=== PATIENT | female | born 1945 | race Caucasian/White ===

== ENCOUNTER 2018-12-14 21:35 | Outpatient (CLI) | payer SELFPAY | END 2018-12-14 21:36 | disposition home or self-care (01) | LOC: EMS 21:35 | PROVIDERS: ATTEND Surgery | DX: J34.89 Other specified disorders of nose and nasal sinuses (principal); F03.90 Unspecified dementia, unspecified severity, without behavioral disturbance, psychotic disturbance, mood disturbance, and anxiety ==

== ENCOUNTER 2018-12-15 08:39 | Outpatient (CLI) | payer MEDICARE | END 2018-12-15 08:40 | disposition critical access hospital (66) | LOC: EMS 08:39 | PROVIDERS: ATTEND Surgery | DX: F03.90 Unspecified dementia, unspecified severity, without behavioral disturbance, psychotic disturbance, mood disturbance, and anxiety (principal); R09.81 Nasal congestion | CPT/HCPCS: A0425; A0429 ==

== ENCOUNTER 2018-12-15 08:50 | Emergency (ER) | payer MEDICARE ==
--- NOTE | 2018-12-15 09:24 | ED Physician Documentation ---
History of Present Illness - Stated complaint Stated Complaint: STUFFY NOSE - Chief complaint Chief Complaint: General - History obtained from History obtained from: Patient, EMS - History of Present Illness Timing: Today - Additonal information Additional information: 73-year-old female is brought to the hospital by ambulance after a second EMS call for a stuffy nose in 24 hours. She is unable to give adequate history about why she is here or what has happened to her in the past week or month. She does state that she had a fall outside of the court house does not remember exactly why she was at the court house or what the timeframe was. She thinks he might of had another fall she does not have any pain anywhere and denies any specific symptoms. When specifically asked about her stuffy nose she states that she does have a stuffy nose once in a while and does not feel that she has that now. The patient has apparently recently been seen at [facility] and an APS call has been made. This occurred when the patient took her car after to go [employer] and got lost after passing through [place] and getting to [place] she turned around to come back and somehow she ended up wandering around in [place] and eventually was picked up by police and brought to the hospital. She does have a friend who came to retrieve her. Review of Systems Unable to obtain: Dementia Constitutional: denies: Fever, Chills, Myalgias Eyes: denies: Decreased vision Ears: denies: Ear pain Nose: denies: Rhinorrhea / runny nose, Congestion Throat: denies: Sore throat Cardiac: denies: Chest pain / pressure, Palpitations Respiratory: denies: Dyspnea, Cough GI: denies: Abdominal Pain, Nausea, Vomiting : denies: Dysuria, Frequency Skin: denies: Rash Musculoskeletal: denies: Neck pain, Back pain, Extremity pain Neurologic: denies: Generalized weakness, Focal weakness, Numbness, Difficulty speaking, Near syncope, Headache, Head injury, LOC PD PAST MEDICAL HISTORY - Present Medications Home Medications: Ambulatory Orders Medication Instructions Recorded Confirmed No Known Home Medications 12/15/18 12/15/18 - Allergies Allergies/Adverse Reactions: Allergies Allergy/AdvReac Type Severity Reaction Status Date / Time No Known Drug Allergies Allergy Verified 12/15/18 09:11 PD ED PE NORMAL - Vitals Vital signs reviewed: Yes (hypertensive) - General General: No acute distress, Well developed/nourished, Other (The patient is not oriented. After some trying she is able to get the date as 2018 and Avril as president. She knows she is in a hospital but not why she is here. ) - HEENT HEENT: Atraumatic, PERRL, EOMI, Ears normal, Moist mucous membranes, Pharynx benign - Neck Neck: Supple, no meningeal sign, No bony TTP - Cardiac Cardiac: RRR, No murmur - Respiratory Respiratory: No respiratory distress, Clear bilaterally - Abdomen Abdomen: Soft, Non tender - Back Back: No CVA TTP, No spinal TTP - Derm Derm: Normal color, Warm and dry, No rash - Extremities Extremities: No deformity, No edema - Neuro Neuro: machine adjuster 2-12 intact, No motor deficit, No sensory deficit, Normal speech Eye Opening: Spontaneous Motor: Obeys Commands Verbal: Confused GCS Score: 14 - Psych Psych: Normal mood, Normal affect Results - Vitals Vitals: Vital Signs - 24 hr 12/15/18 12/15/18 12/15/18 08:58 11:17 12:00 Temperature 36.6 C 36.9 C Heart Rate 64 61 66 Respiratory 16 18 16 Rate Blood Pressure 133/66 H 124/63 144/66 H O2 Saturation 100 100 97 Oxygen O2 Source Room air - Labs Labs: Laboratory Tests 12/15/18 12/15/18 09:35 09:35 WBC 4.3 L RBC 3.60 L Hgb 11.5 L Hct 33.1 L MCV 91.8 MCH 31.8 H MCHC 34.7 RDW 15.8 H Plt Count 331 MPV 6.7 L Neut # (Auto) 2.8 Lymph # (Auto) 0.8 L [place] # (Auto) 0.5 Eos # (Auto) 0.1 Baso # (Auto) 0.0 Absolute Nucleated RBC 0.00 Nucleated RBC % 0.0 Sodium 140 Potassium 3.7 Chloride 106 Carbon Dioxide 24 Anion Gap 10.0 BUN 19 Creatinine 0.6 Estimated GFR (MDRD) 97 Glucose 113 H Calcium 9.1 Total Bilirubin 0.6 AST 17 ALT 12 Alkaline Phosphatase 64 Total Protein 6.3 L Albumin 3.1 L Globulin 3.2 Albumin/Globulin Ratio 1.0 Lipase 23 PD MEDICAL DECISION MAKING - ED course Complexity details: reviewed results, re-evaluated patient, considered differential, d/w patient ED course: 73-year-old female with advancing dementia has had a recent hospitalization in [place] when she showed up there after getting lost and an APS referral has been made. Here in the emerge department our neonatal social worker evaluates the patient and recommends returning patient to her home with follow-up with adult protective services. There is no current medical issue. Departure - Departure Disposition: Home, Self Care Clinical Impression: Dementia Condition: Stable Instructions: ED Confusion Follow-Up: EBEN RICHARDSON [Primary Care Provider] - Discharge Date/Time: 12/15/18 12:05
[2018-12-15 09:43] LABS: BASOPHILS % (AUTO) 1.1 %; EOSINOPHILS # (AUTO) 0.1 10^3/uL (0.0-0.7); EOSINOPHILS % (AUTO) 2.8 %; HGB - HEMOGLOBIN 11.5 g/dL (12.0-16.0); LYMPHOCYTES # (AUTO) 0.8 10^3/uL (1.5-3.5); LYMPHOCYTES % (AUTO) 18.7 %; MEAN CORPUSCULAR HEMOGLOBIN 31.8 pg (27.0-31.0); MEAN CORPUSCULAR HGB CONC 34.7 g/dL (32.0-36.0); MEAN CORPUSCULAR VOLUME 91.8 fL (81.0-99.0); MEAN PLATELET VOLUME 6.7 fL (7.9-10.8); MONOCYTES # (AUTO) 0.5 10^3/uL (0.0-1.0); MONOCYTES % (AUTO) 12.6 %; NEUTROPHILS # (AUTO) 2.8 10^3/uL (1.5-6.6); NEUTROPHILS % (AUTO) 64.8 %; PLT - PLATELET COUNT 331 10^3/uL (130-450); RED CELL DISTRIBUTION WIDTH 15.8 % (12.0-15.0); WHITE BLOOD COUNT 4.3 x10^3/uL (4.8-10.8)
[2018-12-15 09:54] LABS: ALBUMIN 3.1 g/dL (3.2-5.5); BILIRUBIN,TOTAL 0.6 mg/dL (0.2-1.0); CALCIUM 9.1 mg/dL (8.5-10.3); CREATININE 0.6 mg/dL (0.4-1.0); TOTAL PROTEIN 6.3 g/dL (6.7-8.2)
[2018-12-15 12:14] VITALS: BP 144/66
== END 2018-12-15 12:05 | disposition home or self-care (01) ==
LOC: EDUNIT# → ED 08:50
DX: F03.90 Unspecified dementia, unspecified severity, without behavioral disturbance, psychotic disturbance, mood disturbance, and anxiety (principal)
CPT/HCPCS: 36415; 80053; 83690; 85025; 99283

== ENCOUNTER 2019-08-17 19:03 | Outpatient (CLI) | payer MEDICARE | END 2019-08-17 19:04 | disposition critical access hospital (66) | LOC: EMS 19:03 | PROVIDERS: ATTEND Surgery | DX: Z03.89 Encounter for observation for other suspected diseases and conditions ruled out (principal) | CPT/HCPCS: A0425; A0429 ==

== ENCOUNTER 2019-08-17 19:20 | Emergency (ER) | payer MEDICARE ==
--- NOTE | 2019-08-17 20:16 | ED Physician Documentation ---
History of Present Illness - Stated complaint Stated Complaint: MSE - Chief complaint Chief Complaint: General - History obtained from History obtained from: Patient, EMS, Caregiver (GAL) - History of Present Illness Timing: Chronic Pain level max: 0 Pain level now: 0 Improved by: nothing Worsened by: nothing - Additonal information Additional information: 73-year-old female presents to the emergency department with her pupil personnel services director. Is brought in by EMS. He states that she is not eating and drinking at home. He states she has no electricity. He is concerned about her safety at home. She states that she has electricity and she is eating and drinking. She states that she ate breakfast this morning. She has no complaints at this time and states that she does not want to be in the emergency department and does not know why she is here. The pupil personnel services director states that the police were out last night and were also concerned about her, but not concerned enough to write an affidavit or statement. Review of Systems Ten Systems: 10 systems reviewed and negative Constitutional: denies: Fever, Chills Nose: denies: Rhinorrhea / runny nose, Congestion Throat: denies: Sore throat Cardiac: denies: Chest pain / pressure, Palpitations Respiratory: denies: Dyspnea, Cough GI: denies: Abdominal Pain, Nausea, Vomiting, Diarrhea Skin: denies: Rash Musculoskeletal: denies: Neck pain, Back pain Neurologic: reports: Confused (baseline, no change per GAL). denies: Generalized weakness, Focal weakness, Numbness, Headache, Head injury, LOC PD PAST MEDICAL HISTORY - Past Medical History Past Medical History: No - Past Surgical History Past Surgical History: No - Present Medications Home Medications: Ambulatory Orders Medication Instructions Recorded Confirmed No Known Home Medications 12/15/18 12/15/18 - Allergies Allergies/Adverse Reactions: Allergies Allergy/AdvReac Type Severity Reaction Status Date / Time No Known Drug Allergies Allergy Verified 12/15/18 09:11 - Living Situation Living Arrangement: reports: At home - Social History Does the pt smoke?: No Smoking Status: Never smoker Does the pt drink ETOH?: No Does the pt have substance abuse?: No - Family History Family history: reports: Non contributory PD ED PE NORMAL - Vitals Vital signs reviewed: Yes - General General: Other (Alert, oriented to person and place. Thin female. Well-kept. Not disheveled) - HEENT HEENT: PERRL, Moist mucous membranes, Pharynx benign - Neck Neck: Supple, no meningeal sign - Cardiac Cardiac: RRR, Strong equal pulses - Respiratory Respiratory: No respiratory distress, Clear bilaterally - Abdomen Abdomen: Soft, Non tender, Non distended - Derm Derm: Warm and dry, No rash - Extremities Extremities: No edema - Neuro Neuro: Other (Alert, oriented to person and place.) - Psych Psych: Normal mood, Normal affect Results - Vitals Vitals: Vital Signs - 24 hr 08/17/19 08/17/19 08/17/19 19:23 20:13 20:39 Temperature 36 C L Heart Rate 80 72 Respiratory 18 17 Rate Blood Pressure 219/110 H 200/114 H 188/87 H O2 Saturation 98 99 Oxygen O2 Source Room air - EKG (time done) 2002 Rate: Rate (enter#) (83) Rhythm: NSR [place]: Normal Intervals: Normal MN QRS: LVH Ischemia: Normal ST segments - Labs Labs: Laboratory Tests 08/17/19 08/17/19 08/17/19 20:15 20:15 20:15 WBC 6.8 RBC 4.40 Hgb 13.9 Hct 41.1 MCV 93.4 MCH 31.6 H MCHC 33.8 RDW 15.1 H Plt Count 343 MPV 8.8 Neut # (Auto) 5.4 Lymph # (Auto) 0.8 L [place] # (Auto) 0.5 Eos # (Auto) 0.0 Baso # (Auto) 0.0 Absolute Nucleated RBC 0.00 Nucleated RBC % 0.0 Sodium 140 Potassium 3.8 Chloride 104 Carbon Dioxide 17 L Anion Gap 19.0 H BUN 24 H Creatinine 0.9 Estimated GFR (MDRD) 61 L Glucose 117 H Calcium 10.4 H Total Bilirubin 1.4 H AST 22 ALT 11 Alkaline Phosphatase 54 Total Protein 8.4 H Albumin 4.6 Globulin 3.8 Albumin/Globulin Ratio 1.2 Lipase 30 TSH 1.84 Free T4 0.96 Urine Color Urine Clarity Urine pH Ur Specific [place] Urine Protein Urine Glucose (UA) Urine Ketones Urine Occult Blood Urine Nitrite Urine Bilirubin Urine Urobilinogen Ur Leukocyte Esterase Urine RBC Urine WBC Ur Squamous Epith Cells Urine Bacteria Urine Casts Ur Microscopic Review Urine Culture Comments 08/17/19 20:20 WBC RBC Hgb Hct MCV MCH MCHC RDW Plt Count MPV Neut # (Auto) Lymph # (Auto) [place] # (Auto) Eos # (Auto) Baso # (Auto) Absolute Nucleated RBC Nucleated RBC % Sodium Potassium Chloride Carbon Dioxide Anion Gap BUN Creatinine Estimated GFR (MDRD) Glucose Calcium Total Bilirubin AST ALT Alkaline Phosphatase Total Protein Albumin Globulin Albumin/Globulin Ratio Lipase TSH Free T4 Urine Color YELLOW Urine Clarity HAZY Urine pH 6.0 Ur Specific [place] >=1.030 H Urine Protein 30 H Urine Glucose (UA) NEGATIVE Urine Ketones >=80 H Urine Occult Blood TRACE-INTA Urine Nitrite NEGATIVE Urine Bilirubin NEGATIVE Urine Urobilinogen 0.2 (NORMAL) Ur Leukocyte Esterase NEGATIVE Urine RBC 0-5 Urine WBC 11-25 H Ur Squamous Epith Cells MOD Squamous H Urine Bacteria Few Urine Casts 0-2 Course Granular Ur Microscopic Review INDICATED Urine Culture Comments NOT INDICATED PD MEDICAL DECISION MAKING - ED course Complexity details: reviewed results, re-evaluated patient, considered differential, d/w patient ED course: 73-year-old female brought in by her temporary pupil personnel services director. EMS states that there was electricity on at the house. Lights were on inside the residence. They state the residence was well kept. She appears clean and well- kept here. Eating and drinking without difficulty. No significant laboratory abnormalities other than mild dehydration. No indication for hospitalization at this time. Recommend that she follow-up with her doctor for further care. She does have a primary care provider that she has seen. Does have long-standing hypertension. Her hypertension here is not significantly different than her prior visits. Patient counseled regarding signs and symptoms for which I believe and urgent re-evaluation would be necessary. Patient with good understanding of and agreement to plan and is comfortable going home at this time This document was made in part using voice recognition software. While efforts are made to proofread this document, sound alike and grammatical errors may occur. Departure - Departure Disposition: 01 Home, Self Care Clinical Impression: Dehydration Hypertension Qualifiers: Hypertension type: unspecified Qualified Code(s): I10 - Essential (primary) hypertension Condition: Good Instructions: ED Dehydration Follow-Up: EBEN ARCEO [Physician No Access] - Within 3 Days Comments: You have mild dehydration on your laboratory testing today. Your blood pressure was high but is coming down on its own. You should follow-up with your doctor for further care. You see Dr. Arceo in [place]. Discharge Date/Time: 08/17/19 21:26
[2019-08-17 20:21] LABS: BASOPHILS % (AUTO) 0.6 %; EOSINOPHILS % (AUTO) 0.4 %; HGB - HEMOGLOBIN 13.9 g/dL (12.0-16.0); LYMPHOCYTES # (AUTO) 0.8 10^3/uL (1.5-3.5); LYMPHOCYTES % (AUTO) 12.3 %; MEAN CORPUSCULAR HEMOGLOBIN 31.6 pg (27.0-31.0); MEAN CORPUSCULAR HGB CONC 33.8 g/dL (32.0-36.0); MEAN CORPUSCULAR VOLUME 93.4 fL (81.0-99.0); MEAN PLATELET VOLUME 8.8 fL (7.9-10.8); MONOCYTES # (AUTO) 0.5 10^3/uL (0.0-1.0); MONOCYTES % (AUTO) 7.8 %; NEUTROPHILS # (AUTO) 5.4 10^3/uL (1.5-6.6); NEUTROPHILS % (AUTO) 78.5 %; PLT - PLATELET COUNT 343 10^3/uL (130-450); RED CELL DISTRIBUTION WIDTH 15.1 % (12.0-15.0); WHITE BLOOD COUNT 6.8 x10^3/uL (4.8-10.8)
[2019-08-17 20:28] LABS: GLUCOSE, URINE (UA) NEGATIVE (NEGATIVE); KETONES,URINE (UA) >=80 mg/dL (NEGATIVE); LEUKOCYTE ESTERASE, URINE NEGATIVE (NEGATIVE); NITRITE,URINE NEGATIVE (NEGATIVE); OCCULT BLOOD,URINE TRACE-INTA (NEGATIVE); PROTEIN,URINE 30 mg/dL (NEGATIVE); UROBILINOGEN,URINE 0.2 (NORMAL) E.U./dL (NORMAL)
[2019-08-17 20:30] LABS: BILIRUBIN,URINE NEGATIVE (NEGATIVE); ICTOTEST,URINE NEGATIVE
[2019-08-17 20:31] LABS: CLARITY,URINE HAZY (CLEAR)
[2019-08-17 20:35] LABS: ALBUMIN 4.6 g/dL (3.2-5.5); ALBUMIN/GLOBULIN RATIO 1.2 (1.0-2.2); BILIRUBIN,TOTAL 1.4 mg/dL (0.2-1.0); CALCIUM 10.4 mg/dL (8.5-10.3); CREATININE 0.9 mg/dL (0.4-1.0); TOTAL PROTEIN 8.4 g/dL (6.7-8.2)
[2019-08-17 20:40] VITALS: BP 188/87
[2019-08-17 20:41] LABS: BACTERIA,URINE Few /HPF (None Seen); RBC,URINE 0-5 /HPF (0-5); SQUAMOUS EPITHELIAL CELL,UR MOD Squamous (<= Few)
[2019-08-17 20:53] LABS: THYROID STIMULATING HORMONE 1.84 uIU/mL (0.34-5.60)
[2019-08-17 20:55] LABS: FREE T4 (FREE THYROXINE) 0.96 ng/dL (0.58-1.64)
== END 2019-08-17 21:26 | disposition home or self-care (01) ==
LOC: EDUNIT# → ED 19:20
DX: E86.0 Dehydration (principal); I10 Essential (primary) hypertension
CPT/HCPCS: 36415; 80053; 81001; 81003; 83690; 84439; 84443; 85025; 87086; 93005; 99282; 99283

== ENCOUNTER 2019-11-16 16:26 | Outpatient (CLI) | payer MEDICARE, MEDICAID | END 2019-11-16 16:27 | disposition critical access hospital (66) | LOC: EMS 16:26 | PROVIDERS: ATTEND Surgery | DX: M25.551 Pain in right hip (principal); R11.10 Vomiting, unspecified | CPT/HCPCS: A0425; A0427 ==

== ENCOUNTER 2019-11-16 16:42 | Inpatient (IN) | payer MEDICARE, MEDICAID ==
--- NOTE | 2019-11-16 16:55 | ED Physician Documentation ---
PD HPI Fall - Stated complaint Stated Complaint: FALL/HIP PAIN - History obtained from History obtained from: EMS - History of Present Illness Where injury occurred: Home Timing - onset: Unknown Injury(ies) location: Right Lower Extremity Worsens with: Palpation Recently seen: Not recently seen - Additional information Additional information: This is a 74-year-old woman with a history of dementia who was found on her floor in her home by a neighbor. There was no heat on in the home and the patient lives alone. The last time this particular neighbor saw the patient was a week ago and she is not sure if anyone has checked in on her otherwise because of the holidays. When the neighbor entered the house she heard yelling and found the patient laying on the floor in the hallway. Seem like she was in pain in her right hip and she indicated as much. When the neighbor sat her up she started vomiting everywhere. The neighbor knows that there was a court hearing and she was assigned this to be evaluated by Senior services but really is not clear on whose coming in to check on the patient and what is happening in the realm of her living situation. The neighbor indicated that the house was very cold without any heat on and that there was cat feces littered around the home. Patient herself is unable to provide me any history. Is unclear if she is unwilling or unable to. She did receive 100 mcg of fentanyl and Zofran 4 mg in route by EMS services for her right hip pain. When asked where she was she recited an address she stated was in [place] but did not recognize that she was at the hospital. She was noted by EMS to have very cold extremities and was found with a shortened externally rotated right lower extremity. Review of Systems Unable to obtain: Dementia PD PAST MEDICAL HISTORY - Past Surgical History Past Surgical History: No - Present Medications Home Medications: Ambulatory Orders Medication Instructions Recorded Confirmed No Known Home Medications 12/15/18 12/15/18 - Allergies Allergies/Adverse Reactions: Allergies Allergy/AdvReac Type Severity Reaction Status Date / Time No Known Drug Allergies Allergy Verified 12/15/18 09:11 - Social History Does the pt smoke?: No Smoking Status: Never smoker Does the pt drink ETOH?: No Does the pt have substance abuse?: No PD ED PE NORMAL - Vitals Vital signs reviewed: Yes - General General: No acute distress, Other (Patient was covered with emesis and would respond to light tactile stimulation just to open her eyes and look at me.) - HEENT HEENT: PERRL - Neck Neck: Other (Patient was in a cervical collar which remained in place until imaging could be cleared) - Cardiac Cardiac: RRR, No murmur - Respiratory Respiratory: No respiratory distress - Abdomen Abdomen: Normal bowel sounds, Soft, Other (She is very thin) - Extremities Extremities: No edema, Other (The right lower extremity is shortened and externally rotated but movement of the leg does not appear to elicit any pain. Palpation over the right hip however does elicit discomfort. Her feet are very cold to the touch. The left leg does not appear to have any pain with movement or palpation. Both upper extremities are moved through range of motion in the shoulder elbow and wrist without any obvious discomfort.) - Neuro Neuro: Other (The patient is not cooperative to follow commands.) Results - Vitals Vitals: Vital Signs - 24 hr 11/16/19 11/16/19 16:54 16:59 Temperature 35.8 C L Heart Rate 75 75 Respiratory 15 15 Rate Blood Pressure 189/86 H 189/86 H O2 Saturation 92 92 Oxygen O2 Source Room air - EKG (time done) 1710 Rate: Rate (enter#) (86) Rhythm: NSR Ischemia: Q waves (II, III, aVF and V5-V6), Non specific changes Other comments: Other comments (Narrow QRS with probable LVH and some nonspecific ST-T wave changes as well as T wave inversion through the inferior and lateral leads.) Compare to prior EKG: Old EKG unavailable - Labs Labs: Laboratory Tests 11/16/19 11/16/19 11/16/19 17:15 17:15 17:15 WBC 12.1 H RBC 4.83 Hgb 14.8 Hct 42.5 MCV 88.0 MCH 30.6 MCHC 34.8 RDW 13.4 Plt Count 341 MPV 9.1 Neut # (Auto) 10.3 H Lymph # (Auto) 0.9 L [place] # (Auto) 0.7 Eos # (Auto) 0.0 Baso # (Auto) 0.1 Absolute Nucleated RBC 0.00 Nucleated RBC % 0.0 PT 14.0 H INR 1.2 Sodium 137 Potassium 2.8 L Chloride 96 L Carbon Dioxide 18 L Anion Gap 23.0 H BUN 35 H Creatinine 1.1 H Estimated GFR (MDRD) 48 L Glucose 225 H Lactic Acid Calcium 9.8 Phosphorus 3.3 Magnesium 2.1 Total Bilirubin 1.7 H AST 21 ALT 19 Alkaline Phosphatase 51 Total Creatine Kinase 25 Total Protein 7.2 Albumin 3.9 Globulin 3.3 Albumin/Globulin Ratio 1.2 Lipase 43 11/16/19 17:15 WBC RBC Hgb Hct MCV MCH MCHC RDW Plt Count MPV Neut # (Auto) Lymph # (Auto) [place] # (Auto) Eos # (Auto) Baso # (Auto) Absolute Nucleated RBC Nucleated RBC % PT INR Sodium Potassium Chloride Carbon Dioxide Anion Gap BUN Creatinine Estimated GFR (MDRD) Glucose Lactic Acid 3.8 H* Calcium Phosphorus Magnesium Total Bilirubin AST ALT Alkaline Phosphatase Total Creatine Kinase Total Protein Albumin Globulin Albumin/Globulin Ratio Lipase - Rads (name of study) r hip Radiology: EMP read contemporaneously cxr Radiology: EMP read contemporaneously, See rad report (neg) ct head Radiology: See rad report (neg acute) PD MEDICAL DECISION MAKING - ED course Complexity details: reviewed old records, reviewed results, d/w data migration consultant ED course: I was able to talk to the neighbor at length over the phone who gave me the information regarding the senior support services and their phone number. I spoke to a Jamia who is the guardian that is on-call this weekend. Unfortunately she does not have immediate access to Ms. Vitale's records and as I was talking with her on the phone was able to view the hip imaging that showed a fracture. Jamia indicated that they would want to proceed with typical care and a course knowing that no surgery would be done tonight anyway. I am also concerned about how long she could have been laying on the floor and still have imaging pending for CTs of the head and neck as well as some laboratory studies. She is hypokalemic at 2.8 and has been ordered for potassium 20 mEq IV. I discussed with Dr. Burgess who is on-call for orthopedics and he plans to contact the guardian about whether they would want hip replacement surgery given the patient's severe dementia. There was some discussion between Dr. Burgess and the guardian about transferring the patient to another facility however I did call and clarify with the guardian that under the circumstances we have the capacity to deal with the patient's medical problems here at [facility] and it is unlikely that ambulance transfer would be paid for under those conditions. Jamia is good to talk with her supervisor waterworks and have someone call me or the ER provider back. Care will be turned over to Dr. Pitts. The head CT was negative and the chest x-ray is clear. The C-spines imaging is still pending.
[2019-11-16 17:21] LABS: BASOPHILS # (AUTO) 0.1 10^3/uL (0.0-0.1); BASOPHILS % (AUTO) 0.4 %; EOSINOPHILS % (AUTO) 0.1 %; HGB - HEMOGLOBIN 14.8 g/dL (12.0-16.0); LYMPHOCYTES # (AUTO) 0.9 10^3/uL (1.5-3.5); LYMPHOCYTES % (AUTO) 7.7 %; MEAN CORPUSCULAR HEMOGLOBIN 30.6 pg (27.0-31.0); MEAN CORPUSCULAR HGB CONC 34.8 g/dL (32.0-36.0); MEAN PLATELET VOLUME 9.1 fL (7.9-10.8); MONOCYTES # (AUTO) 0.7 10^3/uL (0.0-1.0); MONOCYTES % (AUTO) 5.6 %; NEUTROPHILS # (AUTO) 10.3 10^3/uL (1.5-6.6); NEUTROPHILS % (AUTO) 85.4 %; PLT - PLATELET COUNT 341 10^3/uL (130-450); RED BLOOD COUNT 4.83 10^6/uL (4.20-5.40); RED CELL DISTRIBUTION WIDTH 13.4 % (12.0-15.0); WHITE BLOOD COUNT 12.1 x10^3/uL (4.8-10.8)
[2019-11-16 17:32] LABS: INR 1.2 (0.8-1.2)
[2019-11-16 17:36] LABS: ALBUMIN 3.9 g/dL (3.2-5.5); ALBUMIN/GLOBULIN RATIO 1.2 (1.0-2.2); BILIRUBIN,TOTAL 1.7 mg/dL (0.2-1.0); CALCIUM 9.8 mg/dL (8.5-10.3); CREATININE 1.1 mg/dL (0.4-1.0); MAGNESIUM 2.1 mg/dL (1.7-2.8); PHOSPHORUS 3.3 mg/dL (2.5-4.6); TOTAL PROTEIN 7.2 g/dL (6.7-8.2)
[2019-11-16] MEDS ORDERED: POTASSIUM CHLOR 20 MEQ/100 ML 20 MEQ/100 ML BAG IV ONE (17:45)
--- NOTE | 2019-11-16 18:03 | XRAY Report ---
Reason: r hip pain Procedure Date: 11/16/2019 Accession Number: [id number] / [id number] Procedure: XR - Hip w/Pelvis 2-3V RT CPT Code: Final Report FULL RESULT: EXAM: RIGHT HIP RADIOGRAPHY EXAM DATE: 11/16/2019 05:39 PM. CLINICAL HISTORY: R hip pain. COMPARISON: None. TECHNIQUE: 2 views. FINDINGS: Bones: There is varus angulated fracture through the right femoral neck. Joints: Normal. No dislocation. The hip joint space is preserved. Soft Tissues: There is moderate to large volume stool within colon. IMPRESSION: Varus angulated fracture through the right femoral neck. No evidence of dislocation. RADIA
--- NOTE | 2019-11-16 18:04 | XRAY Report ---
Reason: chest pain Procedure Date: 11/16/2019 Accession Number: [id number] / [id number] Procedure: XR - Chest 1 View X-Ray CPT Code: 30202 Final Report FULL RESULT: EXAM: CHEST RADIOGRAPHY EXAM DATE: 11/16/2019 05:41 PM. CLINICAL HISTORY: Chest pain. COMPARISON: CERVICAL SPINE W/O 11/16/2019 5:25 PM. TECHNIQUE: 1 view. FINDINGS: Lungs/Pleura: No focal opacities evident. No pleural effusion. No pneumothorax. Mediastinum: Within exam limitations, the cardiomediastinal contour is normal. Other: Linear lucency projecting over the left chest is presently extrinsic to the patient. IMPRESSION: No acute intrathoracic plain film abnormality. RADIA
--- NOTE | 2019-11-16 18:06 | CT Report ---
Reason: altered mental status Procedure Date: 11/16/2019 Accession Number: [id number] / [id number] Procedure: CT - HEAD WO CPT Code: Final Report FULL RESULT: EXAM: CT HEAD EXAM DATE: 11/16/2019 05:43 PM. CLINICAL HISTORY: Altered mental status. COMPARISON: None. TECHNIQUE: Multiaxial CT images were obtained from the foramen magnum to the vertex. Reformats: Sagittal and coronal. IV contrast: None. In accordance with CT protocol optimization, one or more of the following dose reduction techniques were utilized for this exam: automated exposure control, adjustment of mA and/or KV based on patient size, or use of iterative reconstructive technique. FINDINGS: Parenchyma: There is mild patchy hypoattenuation in the periventricular and deep white matter. The overall díaz-white matter differentiation is preserved. No intracranial hemorrhage demonstrated. No evidence of mass or mass-effect. Extraaxial Spaces: Within normal limits. No subdural or epidural collections identified. Ventricles: Normal in size and position. Basal cisterns are widely patent. Sinuses and Orbits: Imaged paranasal sinuses, orbits, and mastoids show no significant abnormality. Bones: No evidence of fracture or calvarial defect. Other: None. IMPRESSION: 1. No acute intracranial abnormality. 2. Sequela of mild chronic microvascular disease. RADIA
[2019-11-16] MEDS ORDERED: SODIUM CHLORIDE 0.9% 1,000 ML IV ONE (18:09)
--- NOTE | 2019-11-16 18:13 | CT Report ---
Reason: neck pain Procedure Date: 11/16/2019 Accession Number: [id number] / [id number] Procedure: CT - CERVICAL SPINE WO CPT Code: Final Report FULL RESULT: EXAM: CT CERVICAL SPINE WITHOUT CONTRAST DATE: 11/16/2019 05:43 PM. HISTORY: Neck pain. COMPARISONS: None. TECHNIQUE: Thin-section axial images were acquired of the cervical spine without contrast. Post-processing: Coronal and sagittal reformats. Other: None. In accordance with CT protocol optimization, one or more of the following dose reduction techniques were utilized for this exam: automated exposure control, adjustment of mA and/or KV based on patient size, or use of iterative reconstructive technique. FINDINGS: Alignment: No evidence of dislocation. Bones: No fracture or bone lesion. Interspace Levels/Facets: There is multilevel disk space narrowing and facet arthrosis. Spinal canal: No significant abnormalities are seen. Other: No evidence of prevertebral soft tissue swelling or apical pneumothorax. IMPRESSION: No evidence of cervical spine fracture or dislocation. RADIA
--- NOTE | 2019-11-16 18:26 | ED Physician Documentation ---
ED Addendum - Addendum Addendum: 11/16/19 18:[address] Quintanilla, I spoke with Nataliia at the guardianship agency who authorized her to stay here and have the surgery here. She is available [phone] should we need it. She will email me letters of guardianship which I will print out and put on the chart. 11/16/19 19:18 I spoke with Nataliia the guardian, she is sending me by email a guardianship letter which I will print and put on the chart. I spoke with Dr. Ojeda for admission at 7:15 PM. He noted that she has new inverted T waves, and requested a troponin. Of note this could be due to the hypokalemia but I am happy to order the troponin.
[2019-11-16] MEDS: POTASSIUM CHLOR 10 MEQ/100 ML 10 MEQ/100 ML BAG IV SCH ×2 (19:11→21:12)
[2019-11-16 19:40] LABS: ACETAMINOPHEN < 10 ug/mL (10-30); SALICYLATE < 6.0 mg/dL
[2019-11-16] MEDS ORDERED: SODIUM CHLORIDE FLUSH 0.9% 10 ML SYRINGE IVP PRN (19:44)
[2019-11-16] MEDS ORDERED: ACETAMINOPHEN 325 MG TABLET PO PRN (19:44)
[2019-11-16] MEDS ORDERED: POTASSIUM CHLORIDE 20 MEQ TABLET PO STA (19:48)
[2019-11-16] MEDS ORDERED: hydrALAZINE INJ 20 MG/ML VIAL IVP PRN (19:49)
[2019-11-16] MEDS ORDERED: HEPARIN 5,000 UNIT/ML VIAL SUBQ SCH (20:00)
[2019-11-16] MEDS: MORPHINE 2 MG/ML CARPUJECT IVP PRN ×2 (20:54→22:59)
[2019-11-16] MEDS: LACTATED RINGERS 1,000 ML IV SCH (21:12)
--- NOTE | 2019-11-16 21:36 | HISTORY & PHYSICAL EXAMINATION ---
Chief Complaint - Chief Complaint Chief Complaint: Right leg pain History of Present Illness - Admitted From Admitted From:: Home - History Obtained From Records Reviewed: Yes History obtained from: Patient, ER Physician, EMR Exam Limitations: Patient has dementia - History of Present Illness HPI Comment/Other: This is a 74-year-old female with a past medical history significant for dementia who presents today complaining of right leg pain. Patient does have dementia and it is unclear how accurate of a historian she is. She was found on the floor in her home by a neighbor. The patient states she fell yesterday as she was walking in the hallway. She reports slipping and that she fell on the right leg. She denies any syncope or chest pain or palpitations prior to the event. Patient states she been doing quite well up until the fall. The neighbor noted that there was no heat in the home. The patient states she had some nausea and vomiting after she fell. He denies any cardiac history or any medical history for that matter. She reports taking no medications. She denies a history of dementia but chart review states she has dementia and lives alone. She is in the process of obtaining a guardian and there appears to have been a recent court hearing for this. Patient reports she can be a little forgetful but she does tell me she does have a guardian services but cannot recall the name of who her guardian is. He currently complains of right leg pain but denies numbness of the lower extremities, chest pain, dyspnea. She also reports no dysuria, urgency, abdominal pain. She still feels a little nauseous. She knows she is at the hospital but she believes she is in [facility]. She also believes it is August 1975. She does know her date of but is otherwise disoriented. In the emergency department, she is found to have a temperature of 35.8 C. Her heart rate was 75. She was hypertensive with a blood pressure of 189/86. She was not tachypneic and saturating well on room air. Labs were significant for a white count of 12.1 with a left shift. Her potassium was 2.8, bicarbonate 18, anion gap of 23. Her BUN was also elevated at 35 and creatinine of 1.1. Her lactic acid was also elevated at 3.8. Troponin was negative. Her EKG showed a sinus rhythm with T wave inversions in the inferior and lateral leads. These changes were new compared to a prior EKG from a few months ago. CT of the head and cervical spine was unremarkable. Her chest x-ray was also unremarkable. X- ray of the right hip revealed a varus angulated fracture through the right femoral neck without dislocation. This was discussed with orthopedic surgeon change consultant who stated they would operate in the morning. Medicine was then consulted for admission. I did attempt to discuss goals of care with the patient but she was not able to give a clear answer. She stated that she had been doing well prior to this fall and it seemed as if she was leaning towards being a full code. For the time being, she will be a full code and I will speak with her guardian regarding her CODE STATUS further. History - Past Medical History Cardiovascular: reports: Hypertension Respiratory: reports: None Neuro: reports: Dementia - Past Surgical History Other past surgical history: Reports no prior surgical history. - Family & Social History Family History Comment/Other: She does not recall her family history. She states she is only one still living. Living arrangement: At home Living Situation: Alone Social History Notes: She lives at home alone but unfortunately has advanced dementia. She now has a guardian and the letter is being sent to the hospital. The emergency room physician spoke with Nataliia who is the patient's guardian. The patient denies smoking or alcohol use. - Substance History Use: Uses substance without health or social issues: NONE Meds/Allgy - Home Medications Home Medications: Ambulatory Orders Medication Instructions Recorded Confirmed No Known Home Medications 12/15/18 12/15/18 - Allergies Allergies/Adverse Reactions: Allergies Allergy/AdvReac Type Severity Reaction Status Date / Time No Known Drug Allergies Allergy Verified 12/15/18 09:11 Review of Systems - Constitutional Constitutional: denies: Fatigue, Fever, Chills, Poor appetite - Cardiovascular Cariovascular: denies: Chest pain, Edema, Lightheadedness, Syncope - Respiratory Respiratory: denies: SOB at rest - Gastrointestinal Gastrointestinal: reports: Nausea, Vomiting. denies: Abdominal pain - Genitourinary Genitourinary: denies: Dysuria, Frequency - Musculoskeletal Musculoskeletal: reports: Muscle pain, Back pain, Limited range of motion - Neurological Neurological: denies: Numbness - All Other Systems All Other Systems: reports: Other (Review of systems is limited and may not be reliable given her dementia.) Prior Level of Functionality: She has advanced dementia and was living alone with her cat. She now has a guardian. She does have a neighbor who checks in on her every once in a while. She ambulates on her own. Exam - Vital Signs Reviewed Vital Signs: Yes Vital Signs: Vital Signs x48h Temp Pulse Pulse Resp BP BP Pulse Ox 11/16/19 21:19 82 127/66 11/16/19 21:10 89 130/58 L 11/16/19 21:05 169/135 H 11/16/19 21:00 36.3 C L 88 16 193/100 H 97 11/16/19 20:56 192/100 H 11/16/19 20:00 84 17 177/109 H 97 11/16/19 19:46 36.5 C 11/16/19 19:30 84 14 195/106 H 97 11/16/19 19:00 88 18 180/100 H 98 11/16/19 18:29 90 18 188/105 H 100 11/16/19 16:59 75 15 189/86 H 92 11/16/19 16:54 35.8 C L 75 15 189/86 H 92 - Physical Exam General Appearance: positive: No acute distress, Alert Eyes Bilateral: positive: Normal inspection, Conjunctivae nml ENT: positive: ENT inspection nml, Dry mucous membranes Neck: positive: Nml inspection Respiratory: positive: No respiratory distress. negative: Wheezes, Rales, Rhonchi Cardiovascular: positive: Regular rate & rhythm, No murmur. negative: Tachycardia, Bradycardia, Systolic murmur Peripheral Pulses: positive: Other (+2 dorsalis pedis pulses in right lower extremity.) Abdomen: positive: Non-tender, No distention. negative: Tenderness, Guarding, Rebound Skin: positive: No rash, Warm, Dry Extremities: positive: No pedal edema, Other (She has tenderness over the superior aspect of her right femur. Her right lower extremity is externally rotated and shortened. Capillary refill less than 2 seconds. Neurovascularly intact.) Neurologic/Psychiatric: positive: Disoriented to place (Knows she is in the hospital but believes she is in [facility] Disoriented to time, Other (No focal motor deficits on exam except for limited range of motion of the right hip secondary to pain. Sensation intact.). negative: Disoriented to person, Slurred/abnml speech Conclusion/Plan - Problem List (1) Fracture of femoral neck, right, closed Conclusion/Plan: She has a right femoral neck fracture that is not displaced. Orthopedics has been consulted. We will keep her n.p.o. for intervention in the morning. Morphine and Tylenol as needed for pain control. Will check CK level to rule out rhabdomyolysis given unknown downtime. PT consult as she will likely require rehab on discharge. Social work consult as well for disposition planning. Qualifiers: Encounter type: initial encounter Qualified Code(s): S72.001A - Fracture of unspecified part of neck of right femur, initial encounter for closed fracture (2) Pre-op evaluation Conclusion/Plan: This is a 74-year-old female with dementia and no known past medical history but likely has hypertension given her elevated blood pressure as well as LVH on EKG. She has no obvious murmur on exam and although her EKG does show T wave inversions in the inferior and lateral leads, she has no chest pain and her troponin is negative. These changes may be secondary to her hypokalemia and we will recheck an EKG in the morning as well as troponin. She is also hyperglycem ic and may have undiagnosed diabetes. She has no known coronary artery disease, renal insufficiency, or heart failure. She does have an increased anion gap acidosis of unclear etiology. It is difficult to obtain her functional status as she is a poor historian and it is unclear if she is able to function greater than 4 METS. Her [place]on perioperative cardiac risk score is 0.37% for a perioperative cardiac event. We will recheck a troponin in the morning and as long as this is negative, she is likely optimized for intervention. (3) High anion gap metabolic acidosis Conclusion/Plan: She has an elevated anion gap metabolic acidosis with a bicarbonate of 18 and anion gap of 23. The etiology is likely marked multifactorial. Lactic acid is elevated at 3.8 and her BUN is elevated at 35. She does appear hypovolemic on exam as well. Salicylate and Tylenol levels were negative. We will hydrate her with lactated Ringer's and monitor her basic metabolic panel. Recheck a lactic acid. I am hopeful this will improve with IV hydration. (4) Hypokalemia Conclusion/Plan: Potassium is 2.8 and this has been replaced intravenously and orally. Her EKG does show T wave inversions which may be related to the hypokalemia. Will recheck this evening and replace as necessary. (5) Hypertension Conclusion/Plan: Is hypertensive with systolic blood pressure in the 180s. She is not on any antihypertensives at home. Given she will be n.p.o. for intervention, will start her on hydralazine IV as needed. Qualifiers: Hypertension type: unspecified Qualified Code(s): I10 - Essential (primary) hypertension (6) Leukocytosis Conclusion/Plan: Suspect that this is likely reactive in nature but will need to rule out infection given her elevated lactic acid. She is a poor historian but has no acute complaints at this time except for the right leg pain. Blood cultures already been drawn in emergency department. Will hold off on initiating antibiotics unless there is an obvious source of infection. Her chest x-ray was fortunately negative and urinalysis is pending. (7) Hyperglycemia Conclusion/Plan: His hyperglycemia with a blood glucose greater than 200. We will check a hemoglobin A1c and start her on sliding scale. She has no diagnosis of diabetes. (8) Dementia Conclusion/Plan: She has advanced dementia and now has a guardian. The ER physician did note that the letter of guardianship will be sent to the hospital and will be placed in the patient's chart. Qualifiers: Dementia type: unspecified type Dementia behavioral disturbance: without behavioral disturbance Qualified Code(s): F03.90 - Unspecified dementia without behavioral disturbance - Lab Results Lab results reviewed: Yes Fish Bones: 11/16/19 17:15 11/16/19 17:15 - Diagnostic Imaging Results Diagnostic Imaging Results: positive: Final report reviewed - EKG Results EKG Interpreted Independently: Yes EKG Comparison: Changed from prior EKG EKG Findings: EKG revealed a sinus rhythm with T wave inversions in the inferior and lateral leads. This is changed compared to her prior EKG. She also does have significant hypokalemia which may be contributing to these EKG changes. Core Measures - Anticipated LOS I expect patient to be DC'd or transferred within 96 hours.: Yes - Issues Hospital Issues and Management Plan: This is a 74-year-old female with advanced dementia who has a right femoral neck fracture after having a mechanical fall. Orthopedics will get to the OR for intervention. She will require physical therapy and likely a SNF on discharge. - DVT/VTE - Prophylaxis VTE/DVT Device ordered at admit?: Yes VTE/DVT Prophylaxis med ordered at admit?: Yes
[2019-11-16] MEDS ORDERED: KETOROLAC 30 MG/ML VIAL IVP STA (22:02)
[2019-11-17] MEDS: INSULIN REGULAR HUMAN 300 UNIT/3 ML VIAL SUBQ SCH ×3 (00:09→11:40)
[2019-11-17 01:48] LABS: GLUCOSE, URINE (UA) NEGATIVE (NEGATIVE); KETONES,URINE (UA) >=80 mg/dL (NEGATIVE); LEUKOCYTE ESTERASE, URINE NEGATIVE (NEGATIVE); NITRITE,URINE NEGATIVE (NEGATIVE); OCCULT BLOOD,URINE NEGATIVE (NEGATIVE); PROTEIN,URINE TRACE mg/dL (NEGATIVE); UROBILINOGEN,URINE 0.2 (NORMAL) E.U./dL (NORMAL)
[2019-11-17 01:52] LABS: BILIRUBIN,URINE NEGATIVE (NEGATIVE); CLARITY,URINE CLEAR (CLEAR); ICTOTEST,URINE NEGATIVE
[2019-11-17] MEDS: SODIUM CHLORIDE FLUSH 0.9% 10 ML SYRINGE IVP SCH ×2 (05:02→08:06)
[2019-11-17] MEDS: MORPHINE 2 MG/ML CARPUJECT IVP PRN ×2 (05:04→13:56)
[2019-11-17 06:32] LABS: VBG BASE EXCESS -2.7 mmol/L (-2 - +2); VBG PCO2 33.6 mmHg (41-51); VBG PH 7.414 (7.31-7.41); VBG PO2 142.3 mmHg (25-47)
[2019-11-17 06:33] LABS: BASOPHILS % (AUTO) 0.2 %; EOSINOPHILS % (AUTO) 0.5 %; HGB - HEMOGLOBIN 13.3 g/dL (12.0-16.0); LYMPHOCYTES % (AUTO) 2.8 %; MEAN CORPUSCULAR HEMOGLOBIN 30.6 pg (27.0-31.0); MEAN CORPUSCULAR HGB CONC 33.8 g/dL (32.0-36.0); MEAN CORPUSCULAR VOLUME 90.3 fL (81.0-99.0); MONOCYTES % (AUTO) 6.8 %; NEUTROPHILS % (AUTO) 89.2 %; PLT - PLATELET COUNT 273 10^3/uL (130-450); RED BLOOD COUNT 4.35 10^6/uL (4.20-5.40); RED CELL DISTRIBUTION WIDTH 13.9 % (12.0-15.0); WHITE BLOOD COUNT 14.8 x10^3/uL (4.8-10.8)
[2019-11-17 06:36] LABS: ABNORMAL LYMPHS % (MANUAL) 0 %; BAND NEUTROPHILS % (MANUAL) 0 %
[2019-11-17 06:45] LABS: HB2 TOTAL 13.6 g/dL; HEMOGLOBIN A1C 0.51 g/dL; HEMOGLOBIN A1C % 5.6 % (4.6-6.2)
[2019-11-17 06:46] LABS: CALCIUM 9.2 mg/dL (8.5-10.3); MAGNESIUM 1.8 mg/dL (1.7-2.8); PHOSPHORUS 2.7 mg/dL (2.5-4.6)
[2019-11-17 07:01] LABS: DIFFERENTIAL COMMENT MANUAL DIFFERENTIAL; LYMPHOCYTES # (MANUAL) 0.6 10^3/uL (1.5-3.5); LYMPHOCYTES % (MANUAL) 4 %; MONOCYTES # (MANUAL) 1.2 10^3/uL (0.0-1.0); PLATELET ESTIMATE, MANUAL NORMAL (130-450,000) (NORMAL); PLATELET MORPHOLOGY NORMAL APPEARANCE (NORMAL); RBC MORPHOLOGY (MULTIPLE) NORMAL APPEARANCE (NORMAL)
[2019-11-17] MEDS ORDERED: POTASSIUM CHLOR 10 MEQ/100 ML 10 MEQ/100 ML BAG IV SCH (08:00)
[2019-11-17] MEDS: LACTATED RINGERS 1,000 ML IV SCH (08:06)
[2019-11-17] MEDS ORDERED: D5.45NS W/20 MEQ KCL 1,000 ML IV SCH (09:00)
--- NOTE | 2019-11-17 12:18 | PROVIDER PROGRESS NOTE ---
Subjective - Prog Note Date Prog Note Date: 11/17/19 Prog Note Time: 12:15 - Subjective Pt reports feeling: No change (GLF some time during the past week. found by neighbor and taken to ER for evaluation. XR showed a displaced right femoral neck hip fracture.) Objective - Vital Signs/Intake & Output Vital Signs: Vital Signs x48h Temp Pulse Pulse Resp BP Pulse Ox 11/17/19 11:33 36.5 C 77 12 138/64 H 96 11/17/19 07:31 36.6 C 99 16 153/76 H 98 11/17/19 05:43 84 Intake & Output: Intake & Output 11/14/19 11/15/19 11/16/19 11/17/19 23:59 23:59 23:59 23:59 Intake Total 1300 1000 Output Total 600 Balance 1300 400 - Lab Results Fish Bones: 11/17/19 06:19 11/17/19 06:19 Other Labs: Lab Results x24hrs 11/17/19 11/17/19 11/17/19 Range/Units 11:04 06:19 06:19 WBC (4.8-10.8) x10^3/uL RBC (4.20-5.40) 10^6/uL Hgb (12.0-16.0) g/dL Hct (37.0-47.0) % MCV (81.0-99.0) fL MCH (27.0-31.0) pg MCHC (32.0-36.0) g/dL RDW (12.0-15.0) % Plt Count (130-450) 10^3/uL MPV (7.9-10.8) fL Neut # (Auto) (1.5-6.6) 10^3/uL Lymph # (Auto) (1.5-3.5) 10^3/uL [place] # (Auto) (0.0-1.0) 10^3/uL Eos # (Auto) (0.0-0.7) 10^3/uL Baso # (Auto) (0.0-0.1) 10^3/uL Absolute Nucleated RBC x10^3/uL Total Counted Band Neuts % (Manual) (0 - 10) % Abnorm Lymph % (Manual) % Nucleated RBC % /100WBC Neutrophils # (Manual) (1.5-6.6) 10^3/uL Lymphocytes # (Manual) (1.5-3.5) 10^3/uL Monocytes # (Manual) (0.0-1.0) 10^3/uL Eosinophils # (Manual) (0-0.7) 10^3/uL Basophils # (Manual) (0-0.1) 10^3/uL Differential Comment WBC Morphology (NORMAL) Platelet Estimate (NORMAL) Platelet Morphology (NORMAL) RBC Morph Micro Appear (NORMAL) PT (9.9-12.6) secs INR (0.8-1.2) VBG pH 7.414 H (7.31-7.41) VBG pCO2 33.6 L (41-51) mmHg VBG pO2 142.3 H (25-47) mmHg VBG HCO3 21.0 L (23-28) mmol/L VBG Total CO2 22.0 L (24-29) mmol/L VBG O2 Saturation 98.6 H (60-80) % VBG Base Excess -2.7 L (-2 - +2) mmol/L Sodium (135-145) mmol/L Potassium (3.5-5.0) mmol/L Chloride (101-111) mmol/L Carbon Dioxide (21-32) mmol/L Anion Gap (6-13) BUN (6-20) mg/dL Creatinine (0.4-1.0) mg/dL Estimated GFR (MDRD) (>89) Glucose (70-100) mg/dL Glycated Hemoglobin (4.6-6.2) % Estim Average Glucose (70-100) Lactic Acid (0.5-2.2) mmol/L Calcium (8.5-10.3) mg/dL Phosphorus (2.5-4.6) mg/dL Magnesium (1.7-2.8) mg/dL Total Bilirubin (0.2-1.0) mg/dL AST (10-42) IU/L ALT (10-60) IU/L Alkaline Phosphatase (42-121) IU/L Total Creatine Kinase (22-269) IU/L Troponin I High Sens 14.1 13.1 (2.3-14.8) ng/L Total Protein (6.7-8.2) g/dL Albumin (3.2-5.5) g/dL Globulin (2.1-4.2) g/dL Albumin/Globulin Ratio (1.0-2.2) Lipase (22-51) U/L Urine Color Urine Clarity (CLEAR) Urine pH (5.0-7.5) PH Ur Specific [place] (1.002-1.030) Urine Protein (NEGATIVE) mg/dL Urine Glucose (UA) (NEGATIVE) mg/dL Urine Ketones (NEGATIVE) mg/dL Urine Occult Blood (NEGATIVE) Urine Nitrite (NEGATIVE) Urine Bilirubin (NEGATIVE) Urine Urobilinogen (NORMAL) E.U./dL Ur Leukocyte Esterase (NEGATIVE) Ur Microscopic Review Urine Culture Comments Salicylates mg/dL Acetaminophen (10-30) ug/mL 11/17/19 11/17/19 11/17/19 Range/Units 06:19 06:19 06:19 WBC 14.8 H (4.8-10.8) x10^3/uL RBC 4.35 (4.20-5.40) 10^6/uL Hgb 13.3 (12.0-16.0) g/dL Hct 39.3 (37.0-47.0) % MCV 90.3 (81.0-99.0) fL MCH 30.6 (27.0-31.0) pg MCHC 33.8 (32.0-36.0) g/dL RDW 13.9 (12.0-15.0) % Plt Count 273 (130-450) 10^3/uL MPV 9.0 (7.9-10.8) fL Neut # (Auto) Not Reportable (1.5-6.6) 10^3/uL Lymph # (Auto) Not Reportable (1.5-3.5) 10^3/uL [place] # (Auto) Not Reportable (0.0-1.0) 10^3/uL Eos # (Auto) Not Reportable (0.0-0.7) 10^3/uL Baso # (Auto) Not Reportable (0.0-0.1) 10^3/uL Absolute Nucleated RBC Not Reportable x10^3/uL Total Counted 100 Band Neuts % (Manual) 0 (0 - 10) % Abnorm Lymph % (Manual) 0 % Nucleated RBC % Not Reportable /100WBC Neutrophils # (Manual) 13.0 H (1.5-6.6) 10^3/uL Lymphocytes # (Manual) 0.6 L (1.5-3.5) 10^3/uL Monocytes # (Manual) 1.2 H (0.0-1.0) 10^3/uL Eosinophils # (Manual) 0.0 (0-0.7) 10^3/uL Basophils # (Manual) 0.0 (0-0.1) 10^3/uL Differential Comment MANUAL DIFFERENTIAL WBC Morphology NORMAL APPEARANCE (NORMAL) Platelet Estimate NORMAL (130-450,000) (NORMAL) Platelet Morphology NORMAL APPEARANCE (NORMAL) RBC Morph Micro Appear NORMAL APPEARANCE (NORMAL) PT (9.9-12.6) secs INR (0.8-1.2) VBG pH (7.31-7.41) VBG pCO2 (41-51) mmHg VBG pO2 (25-47) mmHg VBG HCO3 (23-28) mmol/L VBG Total CO2 (24-29) mmol/L VBG O2 Saturation (60-80) % VBG Base Excess (-2 - +2) mmol/L Sodium 138 (135-145) mmol/L Potassium 3.6 (3.5-5.0) mmol/L Chloride 103 (101-111) mmol/L Carbon Dioxide 22 (21-32) mmol/L Anion Gap 13.0 (6-13) BUN 31 H (6-20) mg/dL Creatinine 1.0 (0.4-1.0) mg/dL Estimated GFR (MDRD) 54 L (>89) Glucose 142 H (70-100) mg/dL Glycated Hemoglobin 5.6 (4.6-6.2) % Estim Average Glucose 114 H (70-100) Lactic Acid (0.5-2.2) mmol/L Calcium 9.2 (8.5-10.3) mg/dL Phosphorus 2.7 (2.5-4.6) mg/dL Magnesium 1.8 (1.7-2.8) mg/dL Total Bilirubin (0.2-1.0) mg/dL AST (10-42) IU/L ALT (10-60) IU/L Alkaline Phosphatase (42-121) IU/L Total Creatine Kinase (22-269) IU/L Troponin I High Sens (2.3-14.8) ng/L Total Protein (6.7-8.2) g/dL Albumin (3.2-5.5) g/dL Globulin (2.1-4.2) g/dL Albumin/Globulin Ratio (1.0-2.2) Lipase (22-51) U/L Urine Color Urine Clarity (CLEAR) Urine pH (5.0-7.5) PH Ur Specific [place] (1.002-1.030) Urine Protein (NEGATIVE) mg/dL Urine Glucose (UA) (NEGATIVE) mg/dL Urine Ketones (NEGATIVE) mg/dL Urine Occult Blood (NEGATIVE) Urine Nitrite (NEGATIVE) Urine Bilirubin (NEGATIVE) Urine Urobilinogen (NORMAL) E.U./dL Ur Leukocyte Esterase (NEGATIVE) Ur Microscopic Review Urine Culture Comments Salicylates mg/dL Acetaminophen (10-30) ug/mL 11/17/19 11/16/19 11/16/19 Range/Units 01:25 21:42 21:42 WBC (4.8-10.8) x10^3/uL RBC (4.20-5.40) 10^6/uL Hgb (12.0-16.0) g/dL Hct (37.0-47.0) % MCV (81.0-99.0) fL MCH (27.0-31.0) pg MCHC (32.0-36.0) g/dL RDW (12.0-15.0) % Plt Count (130-450) 10^3/uL MPV (7.9-10.8) fL Neut # (Auto) (1.5-6.6) 10^3/uL Lymph # (Auto) (1.5-3.5) 10^3/uL [place] # (Auto) (0.0-1.0) 10^3/uL Eos # (Auto) (0.0-0.7) 10^3/uL Baso # (Auto) (0.0-0.1) 10^3/uL Absolute Nucleated RBC x10^3/uL Total Counted Band Neuts % (Manual) (0 - 10) % Abnorm Lymph % (Manual) % Nucleated RBC % /100WBC Neutrophils # (Manual) (1.5-6.6) 10^3/uL Lymphocytes # (Manual) (1.5-3.5) 10^3/uL Monocytes # (Manual) (0.0-1.0) 10^3/uL Eosinophils # (Manual) (0-0.7) 10^3/uL Basophils # (Manual) (0-0.1) 10^3/uL Differential Comment WBC Morphology (NORMAL) Platelet Estimate (NORMAL) Platelet Morphology (NORMAL) RBC Morph Micro Appear (NORMAL) PT (9.9-12.6) secs INR (0.8-1.2) VBG pH (7.31-7.41) VBG pCO2 (41-51) mmHg VBG pO2 (25-47) mmHg VBG HCO3 (23-28) mmol/L VBG Total CO2 (24-29) mmol/L VBG O2 Saturation (60-80) % VBG Base Excess (-2 - +2) mmol/L Sodium 138 (135-145) mmol/L Potassium 3.5 (3.5-5.0) mmol/L Chloride 104 (101-111) mmol/L Carbon Dioxide 15 L (21-32) mmol/L Anion Gap 19.0 H (6-13) BUN 30 H (6-20) mg/dL Creatinine 1.0 (0.4-1.0) mg/dL Estimated GFR (MDRD) 54 L (>89) Glucose 193 H (70-100) mg/dL Glycated Hemoglobin (4.6-6.2) % Estim Average Glucose (70-100) Lactic Acid (0.5-2.2) mmol/L Calcium 9.0 (8.5-10.3) mg/dL Phosphorus (2.5-4.6) mg/dL Magnesium (1.7-2.8) mg/dL Total Bilirubin (0.2-1.0) mg/dL AST (10-42) IU/L ALT (10-60) IU/L Alkaline Phosphatase (42-121) IU/L Total Creatine Kinase 28 (22-269) IU/L Troponin I High Sens (2.3-14.8) ng/L Total Protein (6.7-8.2) g/dL Albumin (3.2-5.5) g/dL Globulin (2.1-4.2) g/dL Albumin/Globulin Ratio (1.0-2.2) Lipase (22-51) U/L Urine Color YELLOW Urine Clarity CLEAR (CLEAR) Urine pH 6.0 (5.0-7.5) PH Ur Specific [place] >=1.030 H (1.002-1.030) Urine Protein TRACE (NEGATIVE) mg/dL Urine Glucose (UA) NEGATIVE (NEGATIVE) mg/dL Urine Ketones >=80 H (NEGATIVE) mg/dL Urine Occult Blood NEGATIVE (NEGATIVE) Urine Nitrite NEGATIVE (NEGATIVE) Urine Bilirubin NEGATIVE (NEGATIVE) Urine Urobilinogen 0.2 (NORMAL) (NORMAL) E.U./dL Ur Leukocyte Esterase NEGATIVE (NEGATIVE) Ur Microscopic Review NOT INDICATED Urine Culture Comments NOT INDICATED Salicylates mg/dL Acetaminophen (10-30) ug/mL 11/16/19 11/16/19 11/16/19 Range/Units 21:42 17:15 17:15 WBC (4.8-10.8) x10^3/uL RBC (4.20-5.40) 10^6/uL Hgb (12.0-16.0) g/dL Hct (37.0-47.0) % MCV (81.0-99.0) fL MCH (27.0-31.0) pg MCHC (32.0-36.0) g/dL RDW (12.0-15.0) % Plt Count (130-450) 10^3/uL MPV (7.9-10.8) fL Neut # (Auto) (1.5-6.6) 10^3/uL Lymph # (Auto) (1.5-3.5) 10^3/uL [place] # (Auto) (0.0-1.0) 10^3/uL Eos # (Auto) (0.0-0.7) 10^3/uL Baso # (Auto) (0.0-0.1) 10^3/uL Absolute Nucleated RBC x10^3/uL Total Counted Band Neuts % (Manual) (0 - 10) % Abnorm Lymph % (Manual) % Nucleated RBC % /100WBC Neutrophils # (Manual) (1.5-6.6) 10^3/uL Lymphocytes # (Manual) (1.5-3.5) 10^3/uL Monocytes # (Manual) (0.0-1.0) 10^3/uL Eosinophils # (Manual) (0-0.7) 10^3/uL Basophils # (Manual) (0-0.1) 10^3/uL Differential Comment WBC Morphology (NORMAL) Platelet Estimate (NORMAL) Platelet Morphology (NORMAL) RBC Morph Micro Appear (NORMAL) PT (9.9-12.6) secs INR (0.8-1.2) VBG pH (7.31-7.41) VBG pCO2 (41-51) mmHg VBG pO2 (25-47) mmHg VBG HCO3 (23-28) mmol/L VBG Total CO2 (24-29) mmol/L VBG O2 Saturation (60-80) % VBG Base Excess (-2 - +2) mmol/L Sodium (135-145) mmol/L Potassium (3.5-5.0) mmol/L Chloride (101-111) mmol/L Carbon Dioxide (21-32) mmol/L Anion Gap (6-13) BUN (6-20) mg/dL Creatinine (0.4-1.0) mg/dL Estimated GFR (MDRD) (>89) Glucose (70-100) mg/dL Glycated Hemoglobin (4.6-6.2) % Estim Average Glucose (70-100) Lactic Acid 2.1 (0.5-2.2) mmol/L Calcium (8.5-10.3) mg/dL Phosphorus (2.5-4.6) mg/dL Magnesium (1.7-2.8) mg/dL Total Bilirubin (0.2-1.0) mg/dL AST (10-42) IU/L ALT (10-60) IU/L Alkaline Phosphatase (42-121) IU/L Total Creatine Kinase (22-269) IU/L Troponin I High Sens 8.5 (2.3-14.8) ng/L Total Protein (6.7-8.2) g/dL Albumin (3.2-5.5) g/dL Globulin (2.1-4.2) g/dL Albumin/Globulin Ratio (1.0-2.2) Lipase (22-51) U/L Urine Color Urine Clarity (CLEAR) Urine pH (5.0-7.5) PH Ur Specific [place] (1.002-1.030) Urine Protein (NEGATIVE) mg/dL Urine Glucose (UA) (NEGATIVE) mg/dL Urine Ketones (NEGATIVE) mg/dL Urine Occult Blood (NEGATIVE) Urine Nitrite (NEGATIVE) Urine Bilirubin (NEGATIVE) Urine Urobilinogen (NORMAL) E.U./dL Ur Leukocyte Esterase (NEGATIVE) Ur Microscopic Review Urine Culture Comments Salicylates < 6.0 mg/dL Acetaminophen < 10 L (10-30) ug/mL 11/16/19 11/16/19 11/16/19 Range/Units 17:15 17:15 17:15 WBC (4.8-10.8) x10^3/uL RBC (4.20-5.40) 10^6/uL Hgb (12.0-16.0) g/dL Hct (37.0-47.0) % MCV (81.0-99.0) fL MCH (27.0-31.0) pg MCHC (32.0-36.0) g/dL RDW (12.0-15.0) % Plt Count (130-450) 10^3/uL MPV (7.9-10.8) fL Neut # (Auto) (1.5-6.6) 10^3/uL Lymph # (Auto) (1.5-3.5) 10^3/uL [place] # (Auto) (0.0-1.0) 10^3/uL Eos # (Auto) (0.0-0.7) 10^3/uL Baso # (Auto) (0.0-0.1) 10^3/uL Absolute Nucleated RBC x10^3/uL Total Counted Band Neuts % (Manual) (0 - 10) % Abnorm Lymph % (Manual) % Nucleated RBC % /100WBC Neutrophils # (Manual) (1.5-6.6) 10^3/uL Lymphocytes # (Manual) (1.5-3.5) 10^3/uL Monocytes # (Manual) (0.0-1.0) 10^3/uL Eosinophils # (Manual) (0-0.7) 10^3/uL Basophils # (Manual) (0-0.1) 10^3/uL Differential Comment WBC Morphology (NORMAL) Platelet Estimate (NORMAL) Platelet Morphology (NORMAL) RBC Morph Micro Appear (NORMAL) PT 14.0 H (9.9-12.6) secs INR 1.2 (0.8-1.2) VBG pH (7.31-7.41) VBG pCO2 (41-51) mmHg VBG pO2 (25-47) mmHg VBG HCO3 (23-28) mmol/L VBG Total CO2 (24-29) mmol/L VBG O2 Saturation (60-80) % VBG Base Excess (-2 - +2) mmol/L Sodium 137 (135-145) mmol/L Potassium 2.8 L (3.5-5.0) mmol/L Chloride 96 L (101-111) mmol/L Carbon Dioxide 18 L (21-32) mmol/L Anion Gap 23.0 H (6-13) BUN 35 H (6-20) mg/dL Creatinine 1.1 H (0.4-1.0) mg/dL Estimated GFR (MDRD) 48 L (>89) Glucose 225 H (70-100) mg/dL Glycated Hemoglobin (4.6-6.2) % Estim Average Glucose (70-100) Lactic Acid 3.8 H* (0.5-2.2) mmol/L Calcium 9.8 (8.5-10.3) mg/dL Phosphorus 3.3 (2.5-4.6) mg/dL Magnesium 2.1 (1.7-2.8) mg/dL Total Bilirubin 1.7 H (0.2-1.0) mg/dL AST 21 (10-42) IU/L ALT 19 (10-60) IU/L Alkaline Phosphatase 51 (42-121) IU/L Total Creatine Kinase 25 (22-269) IU/L Troponin I High Sens (2.3-14.8) ng/L Total Protein 7.2 (6.7-8.2) g/dL Albumin 3.9 (3.2-5.5) g/dL Globulin 3.3 (2.1-4.2) g/dL Albumin/Globulin Ratio 1.2 (1.0-2.2) Lipase 43 (22-51) U/L Urine Color Urine Clarity (CLEAR) Urine pH (5.0-7.5) PH Ur Specific [place] (1.002-1.030) Urine Protein (NEGATIVE) mg/dL Urine Glucose (UA) (NEGATIVE) mg/dL Urine Ketones (NEGATIVE) mg/dL Urine Occult Blood (NEGATIVE) Urine Nitrite (NEGATIVE) Urine Bilirubin (NEGATIVE) Urine Urobilinogen (NORMAL) E.U./dL Ur Leukocyte Esterase (NEGATIVE) Ur Microscopic Review Urine Culture Comments Salicylates mg/dL Acetaminophen (10-30) ug/mL 11/16/19 Range/Units 17:15 WBC 12.1 H (4.8-10.8) x10^3/uL RBC 4.83 (4.20-5.40) 10^6/uL Hgb 14.8 (12.0-16.0) g/dL Hct 42.5 (37.0-47.0) % MCV 88.0 (81.0-99.0) fL MCH 30.6 (27.0-31.0) pg MCHC 34.8 (32.0-36.0) g/dL RDW 13.4 (12.0-15.0) % Plt Count 341 (130-450) 10^3/uL MPV 9.1 (7.9-10.8) fL Neut # (Auto) 10.3 H (1.5-6.6) 10^3/uL Lymph # (Auto) 0.9 L (1.5-3.5) 10^3/uL [place] # (Auto) 0.7 (0.0-1.0) 10^3/uL Eos # (Auto) 0.0 (0.0-0.7) 10^3/uL Baso # (Auto) 0.1 (0.0-0.1) 10^3/uL Absolute Nucleated RBC 0.00 x10^3/uL Total Counted Band Neuts % (Manual) (0 - 10) % Abnorm Lymph % (Manual) % Nucleated RBC % 0.0 /100WBC Neutrophils # (Manual) (1.5-6.6) 10^3/uL Lymphocytes # (Manual) (1.5-3.5) 10^3/uL Monocytes # (Manual) (0.0-1.0) 10^3/uL Eosinophils # (Manual) (0-0.7) 10^3/uL Basophils # (Manual) (0-0.1) 10^3/uL Differential Comment WBC Morphology (NORMAL) Platelet Estimate (NORMAL) Platelet Morphology (NORMAL) RBC Morph Micro Appear (NORMAL) PT (9.9-12.6) secs INR (0.8-1.2) VBG pH (7.31-7.41) VBG pCO2 (41-51) mmHg VBG pO2 (25-47) mmHg VBG HCO3 (23-28) mmol/L VBG Total CO2 (24-29) mmol/L VBG O2 Saturation (60-80) % VBG Base Excess (-2 - +2) mmol/L Sodium (135-145) mmol/L Potassium (3.5-5.0) mmol/L Chloride (101-111) mmol/L Carbon Dioxide (21-32) mmol/L Anion Gap (6-13) BUN (6-20) mg/dL Creatinine (0.4-1.0) mg/dL Estimated GFR (MDRD) (>89) Glucose (70-100) mg/dL Glycated Hemoglobin (4.6-6.2) % Estim Average Glucose (70-100) Lactic Acid (0.5-2.2) mmol/L Calcium (8.5-10.3) mg/dL Phosphorus (2.5-4.6) mg/dL Magnesium (1.7-2.8) mg/dL Total Bilirubin (0.2-1.0) mg/dL AST (10-42) IU/L ALT (10-60) IU/L Alkaline Phosphatase (42-121) IU/L Total Creatine Kinase (22-269) IU/L Troponin I High Sens (2.3-14.8) ng/L Total Protein (6.7-8.2) g/dL Albumin (3.2-5.5) g/dL Globulin (2.1-4.2) g/dL Albumin/Globulin Ratio (1.0-2.2) Lipase (22-51) U/L Urine Color Urine Clarity (CLEAR) Urine pH (5.0-7.5) PH Ur Specific [place] (1.002-1.030) Urine Protein (NEGATIVE) mg/dL Urine Glucose (UA) (NEGATIVE) mg/dL Urine Ketones (NEGATIVE) mg/dL Urine Occult Blood (NEGATIVE) Urine Nitrite (NEGATIVE) Urine Bilirubin (NEGATIVE) Urine Urobilinogen (NORMAL) E.U./dL Ur Leukocyte Esterase (NEGATIVE) Ur Microscopic Review Urine Culture Comments Salicylates mg/dL Acetaminophen (10-30) ug/mL - Diagnostic Imaging Diagnostic Imaging Comments: XR showed a dsiplced right femoral neck hip fracture - Other Results/Comments Other Results/Comments: EXAM: Painful right hip motion. N/V ok distally Assessment/Plan - Problem List (1) Fracture of femoral neck, right, closed Impression: Additional dx: Dementia, ?subacute PR by EKG changes over psat 3 months PLAN: Discussed at length with patient's guardian, Nataliia [facility] in [place] both the night of admission and the day after admission. We are in agreement that patient would benefit from a right hip hector- arthroplasty as treatment for her hip fracture. discussion with the Hospitalist service, indicate that patient is at a higher risk for perioperative cardiac arrhythmias, etc for a presumed PR over the past three months. Therefore since patient's surgery is urgent but not emergent, it was decided to attempt a transfer to [facility] in [place] for patient's continued medical management. Qualifiers: Encounter type: initial encounter Qualified Code(s): S72.001A - Fracture of unspecified part of neck of right femur, initial encounter for closed fracture
--- NOTE | 2019-11-17 12:57 | CONSULTATION NOTE ---
DATE OF SERVICE: 11/17/2019 Physician: Villa Burgess MD REFERRING PHYSICIAN: Dr. Maddie Quintanilla of the emergency room department. HISTORY OF PRESENT ILLNESS: Patient is a 74-year-old female demented individual who appare ntly was found by her neighbor lying down in pain in her home. On the day of her admission. It was unclear when she had this ground level fall. She was last seen by her neighbor about a week prior to her admission to the hospital. She was taken by ambulance to the emergency room where her evaluatio n which included x-rays showed a displaced closed right femoral neck hip fracture. Because of her de mentia, she was recently given guardianship with a [facility] in [place], [place] w ho would be effectively managing her placement into a skilled facility as well as management of her m edical care decisions. Patient was subsequently admitted to the hospital. After medical stabilizati on, attempts would be made to perform a right hip hemiarthroplasty for treatment of her hip fracture. PHYSICAL EXAMINATION: Patient appeared to be mildly demented though her mental status did fluctuate somewhat. Patient had pain with range of motion of the right hip. Was able to move her toes on comm and. Sensation appeared to be intact. Good capillary filling noted. X-RAYS: Showed a displaced right femoral neck hip fracture. ASSESSMENT 1. Displaced closed right femoral neck hip fracture. 2. Dementia. 3. Probable subacute myocardial infarction as evidenced by EKG changes over the last 3 months. Inde terminate age, however. PLAN: I spoke at length with Nataliia of the [facility] in [place], [place], who is he lping with the healthcare decisions for this patient, both on the evening of her admission and today, the day after admission about treatment options for patient. On the basis of our conversation, it w as decided that surgical management would be the preferred option. Discussion with the hospitalist; however, indicate that with the EKG changes that were seen over the last 3 months and the fact that i t was indeterminate exactly when she may have had a myocardial infarction that it would be best to tr ansfer patient to a tertiary care facility that would be best able to manage any perioperative cardia c arrhythmia that may come about from a subacute LA. Arrangements will then made for patient to be t ransferred if possible to [facility] in [place] for the balance of her medical manageme nt for her hip fracture. TD: 11/17/2019 12:34
--- NOTE | 2019-11-17 13:48 | DISCHARGE SUMMARY ---
"Discharge Summary Admit Date: 11/16/19 Discharge Date: 11/17/19 Discharging Provider: Gerry Sevilla Primary Care Provider: Noel Rousseau Condition at Discharge: Serious Discharge Disposition: 02 Transfer Acute Care Hosp Discharge Facility Name: [facility] - DIAGNOSES Admission Diagnoses: (1) Fracture of femoral neck, right, closed (2) Pre-op evaluation (3) High anion gap metabolic acidosis (4) Hypokalemia (5) Hypertension (6) Leukocytosis (7) Hyperglycemia (8) Dementia Discharge Diagnoses with Status of Each Condition: (1) Fracture of femoral neck, right, closed transfer to high level care to [facility] (2) abnormal EKG pt has repeated abnormal and inverted T wave EKG. pt had unremarkable EKG 3 months ago. pt had three times unremarkable troponin today. pt is hx of advanced dementia and she did not complain of any pain. Discussed with orthopedics surgeon, he think pt need high level care and need to be transferred. pt's Guardian request for surgery repair. pt was accepted by [facility] for high level of care by hospitalist Dr. Mansfield and orthopedics Dr. Spangler (3) High anion gap metabolic acidosis resolved (4) Hypokalemia resolved (5) Hypertension stable (6) Leukocytosis WBC is slight increased, it seems from pt's distress. pt's UA and CXR were unremarkable. pt has no fever. (7) Hyperglycemia resolved. A1C is normal 5.6 (8) Dementia stable, as pt's baseline - HPI History of Present Illness: refer from Dr. Ojeda's HPI on 11/16/19 This is a 74-year-old female with a past medical history significant for dementia who presents today complaining of right leg pain. Patient does have dementia and it is unclear how accurate of a historian she is. She was found on the floor in her home by a neighbor. The patient states she fell yesterday as she was walking in the hallway. She reports slipping and that she fell on the right leg. She denies any syncope or chest pain or palpitations prior to the event. Patient states she been doing quite well up until the fall. The neighbor noted that there was no heat in the home. The patient states she had some nausea and vomiting after she fell. He denies any cardiac history or any medical history for that matter. She reports taking no medications. She denies a history of dementia but chart review states she has dementia and lives alone. She is in the process of obtaining a guardian and there appears to have been a recent court hearing for this. Patient reports she can be a little forgetful but she does tell me she does have a guardian services but cannot recall the na me of who her guardian is. He currently complains of right leg pain but denies numbness of the lower extremities, chest pain, dyspnea. She also reports no dysuria, urgency, abdominal pain. She still feels a little nauseous. She knows she is at the hospital but she believes she is in [facility]. She also believes it is August 1975. She does know her date of but is otherwise disoriented. In the emergency department, she is found to have a temperature of 35.8 C. Her heart rate was 75. She was hypertensive with a blood pressure of 189/86. She was not tachypneic and saturating well on room air. Labs were significant for a white count of 12.1 with a left shift. Her potassium was 2.8, bicarbonate 18, anion gap of 23. Her BUN was also elevated at 35 and creatinine of 1.1. Her lactic acid was also elevated at 3.8. Troponin was negative. Her EKG showed a sinus rhythm with T wave inversions in the inferior and lateral leads. These changes were new compared to a prior EKG from a few months ago. CT of the head and cervical spine was unremarkable. Her chest x-ray was also unremarkable. X- ray of the right hip revealed a varus angulated fracture through the right femoral neck without dislocation. This was discussed with orthopedic surgeon chief telephone operator who stated they would operate in the morning. Medicine was then consulted for admission. I did attempt to discuss goals of care with the patient but she was not able to give a clear answer. She stated that she had been doing well prior to this fall and it seemed as if she was leaning towards being a full co de. For the time being, she will be a full code and I will speak with her guardian regarding her CODE STATUS further. - CONSULTS | PROCEDURES Consultations: Dr. Burgess Procedures: no procedure, transfer to [facility] - HOSPITAL COURSE Hospital Course: pt was admitted for fall. pt was found to have right femur neck fracture. orthopedics was consulted. in the pre-operation assessment, pt has repeated abnormal and inverted T wave EKG. pt had unremarkable EKG 3 months ago. pt had three times unremarkable troponin today. pt is hx of advanced dementia and she did not complain of any pain. Discussed with orthopedics surgeon, he think pt need high level care and need to be transferred. pt's Guardian request for surgery repair. pt was accepted by [facility] for high level of care by hospitalist Dr. Mansfield and orthopedics Dr. Spangler. Thank your help! the detail hospital course is as the below: (1) Fracture of femoral neck, right, closed transfer to high level care to [facility] (2) abnormal EKG pt has repeated abnormal and inverted T wave EKG. pt had unremarkable EKG 3 months ago. pt had three times unremarkable troponin today. pt is hx of advanced dementia and she did not complain of any pain. Discussed with orthopedics surgeon, he think pt need high level care and need to be transferred. pt's Guardian request for surgery repair. pt was accepted by [facility] for high level of care by hospitalist Dr. Mansfield and orthopedics Dr. Spangler (3) High anion gap metabolic acidosis resolved (4) Hypokalemia resolved (5) Hypertension stable (6) Leukocytosis WBC is slight increased, it seems from pt's distress. pt's UA and CXR were unremarkable. pt has no fever. (7) Hyperglycemia resolved. A1C is normal 5.6 (8) Dementia stable, as pt's baseline - ALLERGIES Allergies/Adverse Reactions: Allergies Allergy/AdvReac Type Severity Reaction Status Date / Time No Known Drug Allergies Allergy Verified 12/15/18 09:11 - MEDICATIONS Home Medications: Ambulatory Orders Medication Instructions Recorded Confirmed No Known Home Medications 12/15/18 12/15/18 - PHYSICAL EXAM AT DISCHARGE General Appearance: positive: No acute distress, Alert. negative: Lethargic Eyes Bilateral: positive: Normal inspection, PERRL, No lid inflammation ENT: positive: ENT inspection nml, No signs of dehydration. negative: Purulent nasal drainage Neck: positive: Nml inspection, Thyroid nml, No JVD, Trachea midline. negative: Thyromegaly, Lymphadenopathy (R), Lymphadenopathy (L), Stiff neck, Tracheal deviation Respiratory: positive: Chest non-tender, No respiratory distress, Breath sounds nml. negative: Wheezes, Rales, Rhonchi Cardiovascular: positive: Regular rate & rhythm, No murmur, No gallop. negative: Irregularly irregular, Extrasystoles, Tachycardia, Bradycardia, Syst olic murmur, Diastolic murmur Peripheral Pulses: positive: 2+ Abdomen: positive: Non-tender, No organomegaly, Nml bowel sounds, No distention. negative: Tenderness, Guarding, Rebound Back: positive: Nml inspection Skin: positive: Color nml, No rash, Warm, Dry. negative: Cyanosis, Diaphoresis, Pallor Extremities: positive: Nml appearance. negative: Calf tenderness, Eneida's sign/cords Neurologic/Psychiatric: positive: Sensation nml. negative: Weakness, Sensory loss, Facial droop - LABS Result Diagrams: 11/17/19 06:19 11/17/19 06:19 - FOLLOW UP Follow Up: transfer to high level care to [facility] - TIME SPENT Time Spent in Discharge (Minutes): 50"
[2019-11-17 14:42] VITALS: BP 170/55
== END 2019-11-17 14:37 | disposition short-term general hospital (02) | DRG 536 ==
LOC: EDUNIT# → EDBD → ED 16:42 → MS2 19:44
PROVIDERS: ADMIT Internal Medicine; ATTEND Nurse Practitioner Gerontology
DX: S72.001A Fracture of unspecified part of neck of right femur, initial encounter for closed fracture (principal); W19.XXXA Unspecified fall, initial encounter; Y92.009 Unspecified place in unspecified non-institutional (private) residence as the place of occurrence of the external cause; E87.2 Acidosis; W01.0XXA Fall on same level from slipping, tripping and stumbling without subsequent striking against object, initial encounter; Y92.008 Other place in unspecified non-institutional (private) residence as the place of occurrence of the external cause; E87.6 Hypokalemia; E86.1 Hypovolemia; R73.9 Hyperglycemia, unspecified; R94.31 Abnormal electrocardiogram [ECG] [EKG]; I10 Essential (primary) hypertension; F03.90 Unspecified dementia, unspecified severity, without behavioral disturbance, psychotic disturbance, mood disturbance, and anxiety; D72.829 Elevated white blood cell count, unspecified; R32 Unspecified urinary incontinence; T68.XXXA Hypothermia, initial encounter; X31.XXXA Exposure to excessive natural cold, initial encounter
CPT/HCPCS: 36415; 70450; 71045; 72125; 73502; 80048; 80053; 81003; 82550; 82803; 83036; 83605; 83690; 83735; 84100; 84484; 85025; 85610; 87040; 93005; 96361; 96365; 99285; A9270; J1815; J7120; 80307; 80329; 81001; 87086